=== PATIENT | female | born 1975 | race Caucasian/White ===

== ENCOUNTER 2020-02-15 07:20 | Emergency (ER) | payer MEDICAID ==
[~2020-02-15] VITALS: Ht 167.6 cm; Wt 63.6 kg
[2020-02-15 07:26] VITALS: BP 110/69
[2020-02-15] MEDS ORDERED: acetaminophen 325mg tablet PO ONE (07:30)
[2020-02-15] MEDS ORDERED: orphenadrine citrate 60mg/2ml inj. IM ONE (07:30)
--- NOTE | 2020-02-15 08:15 | NUR ---
UP TO BATHROOM TO URINATE. CUP GIVEN FOR SPECIMEN. PATIENT "FORGOT" TO URINATE IN CUP.
[2020-02-15] MEDS ORDERED: NAPR-56 PO (08:58)
--- NOTE | 2020-02-15 09:15 | NUR ---
TC YAIR TAYLOR FOR INCIDENT REPORT NUMBER: [id number]
== END 2020-02-15 09:20 | disposition home or self-care (01) ==
LOC: ER 07:21
DX: S20.212A Contusion of left front wall of thorax, initial encounter (principal); R07.81 Pleurodynia; F17.210 Nicotine dependence, cigarettes, uncomplicated; F15.90 Other stimulant use, unspecified, uncomplicated; Z98.890 Other specified postprocedural states; Z79.899 Other long term (current) drug therapy; X58.XXXA Exposure to other specified factors, initial encounter; Y93.89 Activity, other specified; Y92.89 Other specified places as the place of occurrence of the external cause; Y99.8 Other external cause status
CPT/HCPCS: 71046; 96372; 99283; J2360